=== PATIENT | male | born 1960 | race Caucasian/White ===

== ENCOUNTER → 2018-12-06 | Emergency (ER) | payer OTHER ==
[~2018-12-06] VITALS: Ht 182.9 cm; Wt 102.1 kg
[~2018-12-06] MED LIST: INTESTINEX680 M1 PO; MUPIROCIN15 GM TOP
== END | disposition home or self-care (01) ==
LOC: ER 19:45
DX: L03.116 Cellulitis of left lower limb (principal)

== ENCOUNTER 2019-05-06 09:15 | Inpatient (IN) | payer OTHER ==
[~2019-05-06] VITALS: Ht 182.9 cm; Wt 95.3 kg
[2019-05-06] MEDS ORDERED: ZESTRIL10 M1 PO (09:35)
[2019-05-06] MEDS ORDERED: VOLTAREN100 GM TOP (09:36)
[2019-05-06] MEDS ORDERED: ZANAFLEX2 M1 PO (09:37)
--- NOTE | 2019-05-06 09:37 | NUR ---
PACIENTE MASCULINO ALERTA Y ORIENTADO. REFIERE TENER DOLOR ABDOMINAL (FLANCO AGUSTIN) REFIERE TENER LOS SINTOMAS DE [place]. SE UBICA EN RM PARA SER EVALUADO POR EL MEDICO.
--- NOTE | 2019-05-06 09:59 | NUR ---
SE EDUCA A PTE SOBRE [place] MEDICO EKTA REFIERE ENTENDER. SE SIRENA MUESTRAS DE LAB UTILIZANDO MEDIDAS ASEPTICAS. SE COLOCA H/L A PTE EL CUAL SE ENCUENTRA PATENTE RAFITA DE EDEMA Y ENROJECIMIENTO. SE ADMINISTRA MED A PTE EL CUAL TOELRA Y SE NOTIFICA ESTUDIO DE CT PO. PTE SE CONTINUA MONITORIANDO POR CAMBIOS.
[2019-05-09] MEDS ORDERED: FLAGYL500MG PO (14:37)
[2019-05-09] MEDS ORDERED: CIPRO500 MG PO (14:37)
== END 2019-05-09 14:44 | disposition home or self-care (01) | DRG 392 ==
LOC: ER 09:15 → SURG 21:35
PROVIDERS: ADMIT Internal Medicine
DX: K57.30 Diverticulosis of large intestine without perforation or abscess without bleeding (principal); L03.116 Cellulitis of left lower limb; K76.89 Other specified diseases of liver; I10 Essential (primary) hypertension; K29.00 Acute gastritis without bleeding

== ENCOUNTER 2019-06-17 05:55 | Day surgery (SDC) | payer OTHER ==
[~2019-06-17 05:55] MED LIST changes: +CIPRO500 MG PO; +FLAGYL500MG PO; +VOLTAREN100 GM TOP; +ZANAFLEX2 M1 PO; +ZESTRIL10 M1 PO
== END 2019-06-17 09:30 | disposition home or self-care (01) ==
LOC: AMB-ENDOS 05:55
DX: K57.32 Diverticulitis of large intestine without perforation or abscess without bleeding (principal); K57.30 Diverticulosis of large intestine without perforation or abscess without bleeding; K64.0 First degree hemorrhoids

== ENCOUNTER 2022-10-16 20:45 | Emergency (ER) | payer OTHER ==
[~2022-10-16] VITALS: Ht 182.9 cm; Wt 81.6 kg
[2022-10-16] MEDS ORDERED: ATORVASTATIN CA80 MG PO (21:01)
[2022-10-16] MEDS ORDERED: ADULT LOW DOSE81 M1 PO (21:02)
[2022-10-16] MEDS ORDERED: TAMS0.4C PO (21:02)
[2022-10-16] MEDS ORDERED: PEPCID AC20 MG PO (21:02)
[2022-10-17] MEDS ORDERED: CIPRO500 MG PO (03:03)
[2022-10-17] MEDS ORDERED: INTESTINEX680 M1 PO (03:03)
[2022-10-17] MEDS ORDERED: LEVSIN/SL0.125 MG SL (03:03)
[2022-10-17] MEDS ORDERED: PEPCID40 MG PO (03:03)
== END 2022-10-17 03:17 ==
LOC: ER 20:45
DX: K52.9 Noninfective gastroenteritis and colitis, unspecified (principal); I10 Essential (primary) hypertension; E78.00 Pure hypercholesterolemia, unspecified